=== PATIENT | female | born 1980 ===

== ENCOUNTER 2017-01-03 14:13 | Emergency (ER) | payer MEDICAID ==
[2017-01-03 14:16] VITALS: BP 137/82; PULSE 83; RESP 20; TEMP 98.3; O2SAT 100
[2017-01-03] MEDS ORDERED: Naproxen 550 mg Tab PO STA (14:40)
--- NOTE | 2017-01-03 14:43 | C.PDOC ---
History Of Present Illness 36 y/o fever presents to the ED with complaints of sore throat, fever and rash to face, chest and abdomen. Pt denies cough, runny nose, lip/tongue swelling, sensation of throat closing up, sick contacts. Time Seen by Provider: 01/03/17 14:20 Chief Complaint (Nursing): Fever History Per: Patient History/Exam Limitations: no limitations Onset/Duration Of Symptoms: Days Current Symptoms Are (Timing): Still Present Location Of Pain: Throat Sick Contacts (Context): None Associated Symptoms: Fever, Sore Throat. denies: Cough, Vomiting, Diarrhea Severity: Mild Past Medical History Reviewed: Historical Data, Nursing Documentation, Vital Signs Vital Signs: Last Vital Signs Temp 98.3 F 01/03/17 14:15 Pulse 83 01/03/17 14:15 Resp 20 01/03/17 14:54 BP 137/82 01/03/17 14:15 Pulse Ox 100 01/03/17 17:42 - Medical History PMH: No Chronic Diseases Family History: States: No Known Family Hx - Social History Hx Alcohol Use: No Hx Substance Use: No Review Of Systems Except As Marked, All Systems Reviewed And Found Negative. Constitutional: Positive for: Fever. Negative for: Chills ENT: Positive for: Throat Pain. Negative for: Ear Pain, Nose Discharge, Mouth Swelling, Throat Swelling Respiratory: Negative for: Cough, Shortness of Breath Gastrointestinal: Negative for: Nausea, Vomiting, Abdominal Pain, Diarrhea Genitourinary: Negative for: Dysuria, Hematuria Skin: Positive for: Rash (face, chest, abdomen). Negative for: Lesions Physical Exam - Physical Exam Appears: Well, Non-toxic, No Acute Distress Skin: Warm, Dry, Rash (mild maculopapular rash on forehead, chest and abdomen- blanching, nonvesicular, spares palms and soles) Head: Normacephalic Ear(s): Bilateral: Normal Oral Mucosa: Moist (no intraoral lesions; (-) [place] spots), Other (no intraoral lesions; n koplik spots) Tongue: Normal Appearing, No Swelling Lips: Normal Appearing, No Swelling Throat: Normal, No Erythema, No Exudate, No Drooling Neck: Normal ROM, Supple Cardiovascular: Rhythm Regular Respiratory: Normal Breath Sounds, No Rales, No Rhonchi, No Wheezing Extremity: Bilateral: Atraumatic Neurological/Psych: Oriented x3 ED Course And Treatment O2 Sat by Pulse Oximetry: 100 (on room air) Pulse Ox Interpretation: Normal Progress Note: Patient given PO Naprosyn and Benadryl in ED - for viral syndrome /exanthem. Rxs for Naprosyn and Benadryl also given, and she was instructed to follow up with follow up with PMD in 1-2 days. She understands she should return to ED if symptoms worsen. Reevaluation Time: 14:55 Reassessment Condition: Improved Disposition Counseled Patient/Family Regarding: Diagnosis, Need For Followup, Rx Given - Disposition Referrals: Kermit Sheldon MD [Medical Doctor] - Disposition: HOME/ ROUTINE Disposition Time: 14:55 Condition: GOOD Additional Instructions: SEGUIMIENTO CON CARABALLO DOCTOR / CLNICA EN 1-2 ZHANG USE LOS MEDICAMENTOS QUE ALICIA NECESARIOS DEVUELVA A LA DAYAN DE EMERGENCIA SI LOS SNTOMAS EMPEORARAN Prescriptions: DiphenhydrAMINE [Benadryl] 25 mg PO Q4H PRN #15 cap PRN Reason: allergies Naproxen [Naprosyn Tab] 375 mg PO BID PRN #20 tab PRN Reason: pain Instructions: Viral Syndrome (ED), Viral Exanthem (ED) Print Language: CHINESE - POA Present On Arrival: None - Clinical Impression Clinical Impression: Viral syndrome, Viral exanthem - Scribe Statement The provider has reviewed the documentation as recorded by the Edgar Keene Provider Attestation: All medical record entries made by the Danyelleibkerry were at my direction and personally dictated by me. I have reviewed the chart and agree that the record accurately reflects my personal performance of the history, physical exam, medical decision making, and the department course for this patient. I have also personally directed, reviewed, and agree with the discharge instructions and disposition.
[2017-01-03] MEDS ORDERED: Naproxen 550 mg Tab PO ONE (14:45)
== END 2017-01-03 14:54 | disposition home or self-care (01) ==
LOC: C.ER 14:13
DX: B09 Unspecified viral infection characterized by skin and mucous membrane lesions (principal)